=== PATIENT | female | born 1995 | race Caucasian/White ===

== ENCOUNTER 2017-05-26 14:00 | Emergency (ER) | payer OTHER ==
[~2017-05-26] VITALS: Ht 154.9 cm; Wt 52.2 kg
[~2017-05-26 14:00] MED LIST: FLONASE16 GM NS; GILPHEX TR1 TAB.SR .; ZOLOFT25 MG PO; ZYRTEC10 MG PO
== END 2017-05-26 17:53 | disposition home or self-care (01) ==
LOC: ER 14:00
DX: J11.1 Influenza due to unidentified influenza virus with other respiratory manifestations (principal); R50.9 Fever, unspecified

== ENCOUNTER 2019-10-20 12:04 | Outpatient (CLI) | payer OTHER | END 2019-10-20 14:41 | disposition home or self-care (01) | LOC: LAB 12:04 | DX: B17.8 Other specified acute viral hepatitis (principal); M26.89 Other dentofacial anomalies; Z28.3 Underimmunization status ==